=== PATIENT | female | born 1935 | race Asian ===

== ENCOUNTER → 2019-03-22 | Outpatient (CLI) | payer MEDICARE, OTHER | END | disposition home or self-care (01) | LOC: RADPV 10:28 | PROVIDERS: ATTEND Internal Medicine | DX: R22.42 Localized swelling, mass and lump, left lower limb (principal) | CPT/HCPCS: 93971 ==

== ENCOUNTER → 2019-03-29 | Outpatient (CLI) | payer MEDICARE, OTHER | END | disposition home or self-care (01) | LOC: RADPV 10:04 | PROVIDERS: ATTEND Internal Medicine | DX: I08.1 Rheumatic disorders of both mitral and tricuspid valves (principal); R60.0 Localized edema | CPT/HCPCS: 93306 ==

== ENCOUNTER → 2019-09-22 | Outpatient (CLI) | payer MEDICARE, OTHER | END | disposition home or self-care (01) | LOC: RADPV 09:10 | PROVIDERS: ATTEND Internal Medicine | DX: M81.0 Age-related osteoporosis without current pathological fracture (principal); M85.88 Other specified disorders of bone density and structure, other site | CPT/HCPCS: 77080 ==

== ENCOUNTER → 2020-02-29 | Outpatient (CLI) | payer MEDICARE, OTHER ==
[~2020-02-29] VITALS: Ht 149.9 cm; Wt 44.9 kg
[~2020-02-29] MED LIST: ACET-66 PO; ALEN70TA65 PO; AMLO-258 PO; ASPI-728 PO; ATOR20TA86 PO; CALC-685 PO; FURO20 PO; MULT1CAP32 PO; POTA8TAB71 PO
[2020-02-29 10:55] VITALS: BP 126/57
== END | disposition home or self-care (01) ==
LOC: SRCNTR 10:54
PROVIDERS: ATTEND Internal Medicine Cardiovascular Disease
DX: R55 Syncope and collapse (principal); Z95.0 Presence of cardiac pacemaker
CPT/HCPCS: Q3014

== ENCOUNTER → 2020-03-30 | Outpatient (CLI) | payer MEDICARE, OTHER ==
[~2020-03-30] VITALS: Ht 149.9 cm; Wt 44.0 kg
[2020-03-30 10:25] VITALS: BP 133/68
== END | disposition home or self-care (01) ==
LOC: SRCNTR 10:23
PROVIDERS: ATTEND Internal Medicine Cardiovascular Disease
DX: Z45.018 Encounter for adjustment and management of other part of cardiac pacemaker (principal)
CPT/HCPCS: G0463

== ENCOUNTER → 2020-05-04 | Outpatient (CLI) | payer MEDICARE, OTHER | END | disposition home or self-care (01) | LOC: SRCNTR 10:30 | PROVIDERS: ATTEND Internal Medicine Cardiovascular Disease | DX: I10 Essential (primary) hypertension (principal); E78.5 Hyperlipidemia, unspecified; Z95.0 Presence of cardiac pacemaker; Z79.82 Long term (current) use of aspirin; Z79.899 Other long term (current) drug therapy | CPT/HCPCS: Q3014 ==

== ENCOUNTER → 2020-07-09 | Outpatient (CLI) | payer MEDICARE, OTHER ==
[~2020-07-09] VITALS: Ht 147.3 cm; Wt 40.0 kg
[2020-07-09 11:20] VITALS: BP 138/69
== END | disposition home or self-care (01) ==
LOC: SRCNTR 11:03
PROVIDERS: ATTEND Internal Medicine Cardiovascular Disease
DX: E78.5 Hyperlipidemia, unspecified (principal); I10 Essential (primary) hypertension; R41.81 Age-related cognitive decline; Z95.0 Presence of cardiac pacemaker
CPT/HCPCS: G0463

== ENCOUNTER → 2020-09-17 | Outpatient (CLI) | payer MEDICARE, OTHER ==
[~2020-09-17] VITALS: Ht 144.8 cm; Wt 42.5 kg
[~2020-09-17] MED LIST changes: +ACET-3385 PO; -ACET-66 PO
[2020-09-17 10:45] VITALS: BP 136/72
== END | disposition home or self-care (01) ==
LOC: SRCNTR 10:17
PROVIDERS: ATTEND Internal Medicine Cardiovascular Disease
DX: I10 Essential (primary) hypertension (principal); E78.5 Hyperlipidemia, unspecified; R41.81 Age-related cognitive decline; Z95.0 Presence of cardiac pacemaker; Z79.82 Long term (current) use of aspirin
CPT/HCPCS: G0463

== ENCOUNTER → 2020-09-28 | Outpatient (CLI) | payer MEDICARE, OTHER ==
[~2020-09-28] VITALS: Ht 144.8 cm; Wt 41.6 kg
[2020-09-28 10:28] VITALS: BP 132/67
== END | disposition home or self-care (01) ==
LOC: SRCNTR 09:54
PROVIDERS: ATTEND Internal Medicine Cardiovascular Disease
DX: Z45.010 Encounter for checking and testing of cardiac pacemaker pulse generator [battery] (principal)
CPT/HCPCS: 93288; G0463

== ENCOUNTER → 2020-11-12 | Outpatient (CLI) | payer MEDICARE, OTHER ==
[~2020-11-12] VITALS: Ht 144.8 cm; Wt 41.4 kg
[~2020-11-12] MED LIST changes: +ASPI-1450 PO; -ASPI-728 PO
[2020-11-12 10:31] VITALS: BP 124/62
== END | disposition home or self-care (01) ==
LOC: SRCNTR 10:17
PROVIDERS: ATTEND Internal Medicine Cardiovascular Disease
DX: I10 Essential (primary) hypertension (principal); E78.5 Hyperlipidemia, unspecified; R41.81 Age-related cognitive decline; Z95.0 Presence of cardiac pacemaker
CPT/HCPCS: G0463

== ENCOUNTER → 2021-01-16 | Outpatient (CLI) | payer MEDICARE, OTHER ==
[~2021-01-16] VITALS: Ht 144.8 cm; Wt 43.2 kg
[~2021-01-16] MED LIST changes: -ALEN70TA65 PO
[2021-01-16 10:29] VITALS: BP 136/66
== END | disposition home or self-care (01) ==
LOC: SRCNTR 10:09
PROVIDERS: ATTEND Internal Medicine Cardiovascular Disease
DX: I10 Essential (primary) hypertension (principal); E78.5 Hyperlipidemia, unspecified; R41.81 Age-related cognitive decline; Z95.0 Presence of cardiac pacemaker
CPT/HCPCS: G0463; Z7500

== ENCOUNTER → 2021-03-29 | Outpatient (CLI) | payer MEDICARE, OTHER ==
[~2021-03-29] VITALS: Ht 167.6 cm; Wt 75.6 kg
[2021-03-29 11:47] VITALS: BP 119/72
== END | disposition home or self-care (01) ==
LOC: SRCNTR 09:53
PROVIDERS: ATTEND Internal Medicine Cardiovascular Disease
DX: Z45.010 Encounter for checking and testing of cardiac pacemaker pulse generator [battery] (principal)
CPT/HCPCS: G0463; Z7500

== ENCOUNTER → 2021-05-10 | Outpatient (CLI) | payer MEDICARE, OTHER ==
[~2021-05-10] VITALS: Ht 139.7 cm; Wt 42.0 kg
[2021-05-10 10:17] VITALS: BP 158/80
== END | disposition home or self-care (01) ==
LOC: SRCNTR 09:59
PROVIDERS: ATTEND Internal Medicine Cardiovascular Disease
DX: E78.5 Hyperlipidemia, unspecified (principal); I10 Essential (primary) hypertension; R41.81 Age-related cognitive decline; Z95.0 Presence of cardiac pacemaker
CPT/HCPCS: G0463; Z7500

== ENCOUNTER → 2021-05-27 | Outpatient (CLI) | payer MEDICARE, OTHER ==
[~2021-05-27] MED LIST changes: -AMLO-258 PO; -FURO20 PO
== END | disposition home or self-care (01) ==
LOC: RADMN 10:58
PROVIDERS: ATTEND Internal Medicine
DX: J98.11 Atelectasis (principal); I70.0 Atherosclerosis of aorta; M85.88 Other specified disorders of bone density and structure, other site; R07.81 Pleurodynia; Z95.0 Presence of cardiac pacemaker
CPT/HCPCS: 71101

== ENCOUNTER → 2021-08-05 | Outpatient (CLI) | payer MEDICARE, OTHER ==
[~2021-08-05] VITALS: Ht 144.8 cm; Wt 40.0 kg
[2021-08-05 12:14] VITALS: BP 148/71
== END | disposition home or self-care (01) ==
LOC: SRCNTR 11:16
PROVIDERS: ATTEND Internal Medicine Cardiovascular Disease
DX: I10 Essential (primary) hypertension (principal); E78.5 Hyperlipidemia, unspecified; R41.81 Age-related cognitive decline; Z95.0 Presence of cardiac pacemaker
CPT/HCPCS: G0463

== ENCOUNTER → 2021-10-04 | Outpatient (CLI) | payer MEDICARE, OTHER ==
[~2021-10-04] VITALS: Ht 139.7 cm; Wt 43.0 kg
[~2021-10-04] MED LIST changes: -POTA8TAB71 PO
[2021-10-04 13:37] VITALS: BP 150/80
== END | disposition home or self-care (01) ==
LOC: SRCNTR 09:51
PROVIDERS: ATTEND Internal Medicine Cardiovascular Disease
DX: Z45.010 Encounter for checking and testing of cardiac pacemaker pulse generator [battery] (principal)
CPT/HCPCS: G0463; Z7500

== ENCOUNTER → 2021-11-29 | Outpatient (CLI) | payer MEDICARE, OTHER ==
[~2021-11-29] VITALS: Ht 139.7 cm; Wt 41.3 kg
[~2021-11-29] MED LIST changes: +AMLO2.5T96 PO
[2021-11-29 10:59] VITALS: BP 160/72
== END | disposition home or self-care (01) ==
LOC: SRCNTR 10:34
PROVIDERS: ATTEND Internal Medicine Cardiovascular Disease
DX: I10 Essential (primary) hypertension (principal); E78.5 Hyperlipidemia, unspecified; Z95.0 Presence of cardiac pacemaker; Z79.82 Long term (current) use of aspirin; Z79.899 Other long term (current) drug therapy
CPT/HCPCS: G0463; Z7500

== ENCOUNTER → 2022-01-31 | Outpatient (CLI) | payer MEDICARE, OTHER ==
[~2022-01-31] VITALS: Ht 142.2 cm; Wt 42.8 kg
[2022-01-31 10:30] VITALS: BP 156/75
== END | disposition home or self-care (01) ==
LOC: SRCNTR 10:05
PROVIDERS: ATTEND Internal Medicine Cardiovascular Disease
DX: Z09 Encounter for follow-up examination after completed treatment for conditions other than malignant neoplasm (principal); I10 Essential (primary) hypertension; E78.5 Hyperlipidemia, unspecified; R41.81 Age-related cognitive decline; Z95.0 Presence of cardiac pacemaker
CPT/HCPCS: G0463; Z7500

== ENCOUNTER → 2022-04-04 | Outpatient (CLI) | payer MEDICARE, OTHER ==
[2022-04-04 10:20] VITALS: BP 143/67
== END | disposition home or self-care (01) ==
LOC: SRCNTR 10:06
PROVIDERS: ATTEND Internal Medicine Cardiovascular Disease
DX: Z45.010 Encounter for checking and testing of cardiac pacemaker pulse generator [battery] (principal)
CPT/HCPCS: G0463; Z7500

== ENCOUNTER → 2022-05-12 | Outpatient (CLI) | payer MEDICARE, OTHER ==
[~2022-05-12] VITALS: Ht 144.8 cm; Wt 40.9 kg
[2022-05-12 10:11] VITALS: BP 140/61
== END | disposition home or self-care (01) ==
LOC: SRCNTR 09:53
PROVIDERS: ATTEND Internal Medicine Cardiovascular Disease
DX: I10 Essential (primary) hypertension (principal); Z09 Encounter for follow-up examination after completed treatment for conditions other than malignant neoplasm; E78.5 Hyperlipidemia, unspecified; I49.9 Cardiac arrhythmia, unspecified; R41.81 Age-related cognitive decline; Z95.0 Presence of cardiac pacemaker
CPT/HCPCS: G0463; Z7500

== ENCOUNTER → 2022-07-21 | Outpatient (CLI) | payer MEDICARE, OTHER ==
[2022-07-21 10:36] VITALS: BP 132/65
== END | disposition home or self-care (01) ==
LOC: SRCNTR 10:07
PROVIDERS: ATTEND Internal Medicine Cardiovascular Disease
DX: Z45.010 Encounter for checking and testing of cardiac pacemaker pulse generator [battery] (principal)
CPT/HCPCS: G0463; Z7500

== ENCOUNTER → 2022-07-23 | Outpatient (CLI) | payer MEDICARE, OTHER ==
[~2022-07-23] MED LIST changes: +INFLUENZA VIRUS VACCINE QVS 2022-23 (6MO+)/PF 60 MCG/0.5 ML SYRINGE IM. ONE
[2022-07-23 11:26] VITALS: BP 129/62
== END | disposition home or self-care (01) ==
LOC: SRCNTR 11:01
PROVIDERS: ATTEND Internal Medicine Cardiovascular Disease
DX: Z23 Encounter for immunization (principal); I49.9 Cardiac arrhythmia, unspecified; I10 Essential (primary) hypertension; E78.5 Hyperlipidemia, unspecified; Z95.0 Presence of cardiac pacemaker
CPT/HCPCS: 90686; 90471; G0463

== ENCOUNTER 2023-01-22 19:09 | Emergency (ER) | payer MEDICARE, OTHER ==
[~2023-01-22] VITALS: Ht 147.3 cm; Wt 45.0 kg
[~2023-01-22 19:09] MED LIST changes: +ATOR20TA PO; -ATOR20TA86 PO; -INFLUENZA VIRUS VACCINE QVS 2022-23 (6MO+)/PF 60 MCG/0.5 ML SYRINGE IM. ONE
[2023-01-22] MEDS ORDERED: CYCLOBENZAPRINE HCL 10 MG TABLET PO ONE (19:30)
[2023-01-22] MEDS ORDERED: LIDOCAINE 5% TRANSDERMAL PATCH TD ONE (19:30)
[2023-01-22] MEDS ORDERED: KETOROLAC TROMETHAMINE 30 MG/ML VIAL IM ONE (19:30)
[2023-01-22] MEDS ORDERED: CYCL-448 PO (20:34)
[2023-01-22] MEDS ORDERED: LIDO700A15 TP (20:34)
[2023-01-22 21:30] VITALS: BP 141/79
== END 2023-01-22 21:30 | disposition home or self-care (01) ==
LOC: EMS 19:15
DX: M54.50 Low back pain, unspecified (principal); I11.0 Hypertensive heart disease with heart failure; E78.00 Pure hypercholesterolemia, unspecified
CPT/HCPCS: 99284; 72100; 73503; 96372; J1885

== ENCOUNTER → 2023-02-25 | Outpatient (CLI) | payer MEDICARE, OTHER ==
[~2023-02-25] MED LIST changes: +CYCL-448 PO; +LIDO700A15 TP
[2023-02-25 10:51] VITALS: BP 145/69; PULSE 86; RESP 22; O2SAT 99
== END | disposition home or self-care (01) ==
LOC: SRCNTR 10:16
PROVIDERS: ATTEND Internal Medicine Cardiovascular Disease
DX: Z45.010 Encounter for checking and testing of cardiac pacemaker pulse generator [battery] (principal)
CPT/HCPCS: G0463; Z7500

== ENCOUNTER → 2023-03-09 | Outpatient (CLI) | payer MEDICARE, OTHER ==
[2023-03-09 10:24] VITALS: BP 153/75; PULSE 88; RESP 16; TEMP 97.6; O2SAT 99
== END | disposition home or self-care (01) ==
LOC: SRCNTR 10:19
PROVIDERS: ATTEND Internal Medicine Cardiovascular Disease
DX: Z09 Encounter for follow-up examination after completed treatment for conditions other than malignant neoplasm (principal); I49.8 Other specified cardiac arrhythmias; I10 Essential (primary) hypertension; E78.5 Hyperlipidemia, unspecified; R41.81 Age-related cognitive decline; Z95.0 Presence of cardiac pacemaker
CPT/HCPCS: G0463; Z7500

== ENCOUNTER → 2023-04-27 | Outpatient (CLI) | payer MEDICARE, OTHER ==
[~2023-04-27] VITALS: Ht 142.2 cm; Wt 41.0 kg
[2023-04-27 11:29] VITALS: BP 154/68; PULSE 82; RESP 18; TEMP 98.5; O2SAT 98
== END | disposition home or self-care (01) ==
LOC: SRCNTR 11:25
PROVIDERS: ATTEND Internal Medicine Cardiovascular Disease
DX: I10 Essential (primary) hypertension (principal); I49.8 Other specified cardiac arrhythmias; Z95.0 Presence of cardiac pacemaker; Z79.899 Other long term (current) drug therapy
CPT/HCPCS: G0463; Z7500

== ENCOUNTER → 2023-07-27 | Outpatient (CLI) | payer MEDICARE, OTHER ==
[~2023-07-27] VITALS: Ht 139.7 cm; Wt 41.0 kg
[~2023-07-27] MED LIST changes: -AMLO2.5T96 PO; -ASPI-1450 PO; -ATOR20TA PO; -CALC-685 PO; -CYCL-448 PO; +INFLUENZA VIRUS VACCINE QVS 2023-24 (6MO+)/PF 60 MCG/0.5 ML SYRINGE IM. ONE; -LIDO700A15 TP
[2023-07-27 10:06] VITALS: BP 142/68; PULSE 94; RESP 20; TEMP 97.9; O2SAT 99
== END | disposition home or self-care (01) ==
LOC: SRCNTR 09:53
PROVIDERS: ATTEND Internal Medicine Cardiovascular Disease
DX: I10 Essential (primary) hypertension (principal); I49.9 Cardiac arrhythmia, unspecified; E78.5 Hyperlipidemia, unspecified; Z23 Encounter for immunization; Z79.899 Other long term (current) drug therapy; Z95.0 Presence of cardiac pacemaker
CPT/HCPCS: 90686; 90471; G0463

== ENCOUNTER → 2023-08-26 | Outpatient (CLI) | payer MEDICARE, OTHER ==
[~2023-08-26] MED LIST changes: -INFLUENZA VIRUS VACCINE QVS 2023-24 (6MO+)/PF 60 MCG/0.5 ML SYRINGE IM. ONE
[2023-08-26 12:35] VITALS: BP 124/57; PULSE 98; RESP 20; TEMP 97.9; O2SAT 98
== END | disposition home or self-care (01) ==
LOC: SRCNTR 10:54
PROVIDERS: ATTEND Internal Medicine Cardiovascular Disease
DX: Z45.010 Encounter for checking and testing of cardiac pacemaker pulse generator [battery] (principal)
CPT/HCPCS: G0463; Z7500